=== PATIENT | male | born 1940 | race Caucasian/White ===

== ENCOUNTER → 2017-04-21 | Outpatient (CLI) | payer MEDICARE | END | disposition home or self-care (01) | LOC: PCVCCLINIC 10:00 | PROVIDERS: ATTEND Internal Medicine Cardiovascular Disease | DX: I45.10 Unspecified right bundle-branch block (principal); I44.4 Left anterior fascicular block; I35.0 Nonrheumatic aortic (valve) stenosis; I10 Essential (primary) hypertension; I71.4 Abdominal aortic aneurysm, without rupture; E78.00 Pure hypercholesterolemia, unspecified; J44.9 Chronic obstructive pulmonary disease, unspecified; M19.90 Unspecified osteoarthritis, unspecified site; E66.9 Obesity, unspecified; I83.11 Varicose veins of right lower extremity with inflammation; I83.12 Varicose veins of left lower extremity with inflammation; Z95.2 Presence of prosthetic heart valve; Z95.0 Presence of cardiac pacemaker; Z95.1 Presence of aortocoronary bypass graft; Z95.4 Presence of other heart-valve replacement; Z87.891 Personal history of nicotine dependence; Z79.82 Long term (current) use of aspirin | CPT/HCPCS: 80061; 93005; G0463 ==

== ENCOUNTER → 2017-05-21 | Outpatient (CLI) | payer MEDICARE ==
--- NOTE | 2017-05-21 11:08 | PCVCIMAG ---
EXAM: AORTOILIAC DUPLEX INDICATION: Abdominal aortic aneurysm with prior stent graft repair. FINDINGS: AORTA: Suprarenal aorta measures maximum diameter of 3.0 cm. Prior stent graft repair of abdominal aortic aneurysm appears intact without obvious endoleak. Residual aneurysm sac measures maximum diameter of 5.7 x 6.1 cm. No prior study currently available. RIGHT COMMON ILIAC ARTERY: Maximum diameter is 1.8 cm. No significant stenosis. RIGHT EXTERNAL ILIAC ARTERY: No significant stenosis. LEFT COMMON ILIAC ARTERY: Maximum diameter is 1.7 cm. No significant stenosis. LEFT EXTERNAL ILIAC ARTERY: No significant stenosis. IMPRESSION: Intact stent graft repair of abdominal aortic aneurysm by ultrasound criteria. Residual aneurysm sac measures maximum diameter of 6.1 cm. Interval follow-up with CT angiography of the abdomen and pelvis is suggested for a more detailed evaluation for endoleak. LOC:[id number]
--- NOTE | 2017-05-21 17:46 | PCVCIMAG ---
APPROVED REPORT Study performed: 05/21/2017 10:46:19 EXAM: Comprehensive 2D, Doppler, and color-flow Echocardiogram Patient Location: Echo lab Status: routine BSA: 2.49 HR: 53 bpmBP: 138/84 mmHg Rhythm: NSR Other Information Indications Aortic Valve Disease Mitral Valve Disease CAD S/P CABG,AORTIC VALVE REPLACEMENT #25 SIDDIQI BIOPROSTHETIC 2016, MITRAL VALVE REPLACEMENT 2006 , CABG 2005 2D Dimensions IVSd: 10.28 (7-11mm)LVOT Diam: 24.72 (18-24mm) LVDd: 47.98 mm PWd: 9.60 (7-11mm)Ascending Ao: 35.78 (22-36mm) LVDs: 24.28 (25-40mm) Left Atrium: 44.60 (27-40mm) Aortic Root: 30.76 mm LV Single Plane 4CH: 61.01 % LV Single Plane 2CH: 54.88 %William's LVEF: 57.94 % Biplane EF: 58.1 % Volumes Left Atrial Volume (Systole) Single Plane 4CH: 89.20 mLSingle Plane 2CH: 62.16 mL Biplane LA Volume: 75.00 mLLA ESV Index: 30.00 mL/m2 Aortic Valve AoV Peak Joel.: 2.53 m/s AO Peak Gr.: 25.24 mmHgLVOT Max P.14 mmHg AO Mean Gr.: 16.02 mmHgLVOT Mean P.84 mmHg AO V2 Mean: 1.92 m/sLVOT Max V: 1.08 m/s AO V2 VTI: 68.85 cmLVOT Mean V: 0.82 m/s LUCIA (VTI): 1.91 hp1UMLO V1 VTI: 27.36 cm LUCIA Vmax: 2.05 cm2 SV (LVOT): 131.23 mL Mitral Valve MV Peak Gr.: 5.62 mmHg MV Mean Gr.: 2.19 mmHgE/A Ratio: 1.0 MV Decel. Time: 290.73 ms MV E Max Joel.: 0.99 m/s MV A Joel.: 1.03 m/s MV Max Joel.: 1.19 m/s MV Mean Joel.: 0.69 m/s MV VTI: 506.22 mm MVA VTI: 259.24 mm2 MV PHT: 99.03 ms MVA (PHT): 2.22 cm2 IVRT: 89.97 ms TDI E/Lateral E': 7.62E/Medial E': 16.50 Medial E' Joel.: 0.06 m/s Lateral E' Joel.: 0.13 m/s Pulmonary Valve PV Peak Joel.: 0.97 m/sPV Peak Gr.: 3.77 mmHg Pulmonary Vein P Vein S: 0.52 m/sP Vein A: 0.35 m/s P Vein D: 0.48 m/sP Vein A Dur.: 121.1 msec P Vein S/D Ratio: 1.08 Tricuspid Valve TR Peak Joel.: 2.78 m/s TR Peak Gr.: 30.94 mmHg TV Vmax: 0.83 m/sPA Pressure: 38.00 mmHg Left Ventricle The left ventricle is normal size. There is normal LV segmental wall motion. Moderate to severe concentric left ventricular hypertrophy. Left ventricular systolic function is normal. The left ventricular ejection fraction is within the normal range. LVEF is 55-60%. The left ventricular diastolic function is normal. Right Ventricle The right ventricle is normal size. The right ventricular systolic function is normal. Atria The left atrium size is normal. The right atrium size is normal. Aortic Valve Normally functioning #25 Siddiqi Bioprosthetic aortic valve is present. Peak gradient is 25.6mmHg and the mean gradient is 16 mmHg. The peak velocity is2.5m/sec with a valve area of 2.o cm2. No aortic regurgitation is present. There is no aortic valvular stenosis. Mitral Valve Moderate mitral annular calcification. Mitral valve leaflets open well. Trace to mild mitral regurgitation. No evidence of mitral valve stenosis. Tricuspid Valve The tricuspid valve is normal in structure. Trace to mild tricuspid regurgitation with a PA pressure of 38mmHg. Pulmonic Valve The pulmonary valve is normal in structure. There is no pulmonic valvular regurgitation. Great Vessels The aortic root is normal in size. IVC is normal in size and collapses with >50% inspiration Pericardium There is no pericardial effusion. <Conclusion> Left ventricular systolic function is normal. The left ventricular ejection fraction is within the normal range. Moderate to severe concentric left ventricular hypertrophy. LVEF is 55-60%. The left ventricular diastolic function is normal. The right ventricle is normal size. The left atrium size is normal. No aortic regurgitation is present. Moderate mitral annular calcification. Mitral valve leaflets open well. Trace to mild tricuspid regurgitation with a PA pressure of 38mmHg. There is no pericardial effusion.
== END | disposition home or self-care (01) ==
LOC: PCVCIMAG 09:22
PROVIDERS: ATTEND Internal Medicine Cardiovascular Disease
DX: I08.1 Rheumatic disorders of both mitral and tricuspid valves (principal); I71.4 Abdominal aortic aneurysm, without rupture; I10 Essential (primary) hypertension; J44.9 Chronic obstructive pulmonary disease, unspecified; Z95.2 Presence of prosthetic heart valve; Z95.1 Presence of aortocoronary bypass graft; Z95.828 Presence of other vascular implants and grafts
CPT/HCPCS: 93306; 93978

== ENCOUNTER → 2018-02-17 | Outpatient (CLI) | payer MEDICARE | END | disposition home or self-care (01) | LOC: PCVCCLINIC 11:05 | DX: I71.4 Abdominal aortic aneurysm, without rupture (principal); E78.00 Pure hypercholesterolemia, unspecified; I10 Essential (primary) hypertension; I35.0 Nonrheumatic aortic (valve) stenosis; I87.329 Chronic venous hypertension (idiopathic) with inflammation of unspecified lower extremity; J44.9 Chronic obstructive pulmonary disease, unspecified; F17.201 Nicotine dependence, unspecified, in remission; Z79.82 Long term (current) use of aspirin | CPT/HCPCS: 80061; 93005; G0463 ==

== ENCOUNTER → 2018-05-02 | Outpatient (CLI) | payer MEDICARE ==
--- NOTE | 2018-05-02 16:03 | PCVCIMAG ---
EXAM: BILATERAL SUPERFICIAL VENOUS DUPLEX INDICATION: Leg pain and swelling. FINDINGS: Right leg: No thrombus in the common femoral, main femoral, or popliteal veins. These veins are compressible. Right Great Saphenous Vein: At the saphenofemoral junction the diameter is 8.8 mm, in the mid thigh it is 5.7 mm, and in the calf it is 3.4 mm. There is not significant venous insufficiency/reflux throughout. Venous insufficiency/reflux duration is 0.2 seconds. Right Small Saphenous Vein: At the saphenopopliteal junction the diameter is 4.4 mm, and in the calf it is 1.9 mm. There is not significant venous insufficiency/reflux throughout. Venous insufficiency/reflux duration is 0.3 seconds. There is not a cranial extension present. Left leg: No thrombus in the common femoral, main femoral, or popliteal veins. These veins are compressible. Left Great Saphenous Vein: At the saphenofemoral junction the diameter is 9.5 mm, in the mid thigh it is 6.4 mm, and in the calf it is 6.0 mm. There is significant venous insufficiency/reflux throughout. Venous insufficiency/reflux duration is 7.2 seconds. Left Small Saphenous Vein: At the saphenopopliteal junction the diameter is 5.5 mm, and in the calf it is 3.3 mm. There is not significant venous insufficiency/reflux throughout. Venous insufficiency/reflux duration is 0 seconds. There is not a cranial extension present. IMPRESSION: Right Great Saphenous Vein: No significant venous insufficiency/reflux is present as noted above. Right Small Saphenous Vein: No significant venous insufficiency/reflux is present as noted above. Left Great Saphenous Vein: Significant venous insufficiency/reflux is present as noted above. Left Small Saphenous Vein: No significant venous insufficiency/reflux is present as noted above. LOC:[id number]
== END | disposition home or self-care (01) ==
LOC: PCVCIMAG 15:53
PROVIDERS: ATTEND Internal Medicine Cardiovascular Disease
DX: I87.2 Venous insufficiency (chronic) (peripheral) (principal); I87.322 Chronic venous hypertension (idiopathic) with inflammation of left lower extremity; I10 Essential (primary) hypertension; I71.4 Abdominal aortic aneurysm, without rupture; J44.9 Chronic obstructive pulmonary disease, unspecified; E78.00 Pure hypercholesterolemia, unspecified; M19.90 Unspecified osteoarthritis, unspecified site; Z79.899 Other long term (current) drug therapy; Z79.82 Long term (current) use of aspirin; Z87.891 Personal history of nicotine dependence
CPT/HCPCS: 93970; G0463

== ENCOUNTER → 2018-06-27 | Outpatient (CLI) | payer MEDICARE ==
[~2018-06-27] MED LIST: ARNICA TOPICAL GEL 1.5OZ TUBE. TP ONE; CEPHALEXIN 250 MG CAPSULE. ONE; DIAZEPAM 10 MG TABLET. ONE; IV NORMAL SALINE 1000ML BAG 1,000 ML ONE; LIDOCAINE 1%/EPI 1:100,000 20 ML VIAL. ONE; SODIUM BICARBONATE 50 MEQ/50 ML VIAL. ONE
--- NOTE | 2018-06-27 09:54 | PCVCINTER ---
EXAM: LEFT GREAT SAPHENOUS VEIN ENDOVENOUS LASER ABLATION INDICATION: Chronic Venous Insufficiency Class 6. Leg pain and swelling. Failed conservative therapy including medical grade compression stockings for at least 3 months. Venous hypertension chronic. PROCEDURE: Procedure and risks of endovenous laser ablation including thrombosis, vascular injury, nerve injury, skin necrosis, and infection were discussed with the patient and consent obtained. The left leg was prepped and draped in the normal sterile fashion. Using ultrasound guidance access into the left great saphenous vein was obtained and a 5F 70 cm long catheter was advanced to 2 cm below the saphenofemoral junction. The laser fiber was advanced through the catheter to its tip and the catheter partially retracted. Abundant tumescent anesthesia using a dilute lidocaine solution was given in the perivenous tissues throughout the length of the laser fiber. Ultrasound confirmed good position of the distal tip of the laser fiber as well as direct transcutaneous visualization. The 1470 Dornier laser was set to 6 oropeza and a slow continuous pull-back technique employed to deliver [id number] Joules throughout the treated segment. Catheter and fiber were removed and hemostasis obtained. No immediate complications. The leg was dressed and wrapped appropriately and reinforced with a compression stocking. IMPRESSION: Satisfactory endovenous laser ablation of the left great saphenous vein. LOC:[id number]
== END | disposition home or self-care (01) ==
LOC: PCVCINTER 08:08
PROVIDERS: ATTEND Nuclear Medicine Nuclear Cardiology
DX: I83.812 Varicose veins of left lower extremity with pain (principal); I87.2 Venous insufficiency (chronic) (peripheral); I71.4 Abdominal aortic aneurysm, without rupture; E78.00 Pure hypercholesterolemia, unspecified; M19.90 Unspecified osteoarthritis, unspecified site; E55.9 Vitamin D deficiency, unspecified; M79.7 Fibromyalgia; Z95.0 Presence of cardiac pacemaker; Z98.42 Cataract extraction status, left eye; Z98.41 Cataract extraction status, right eye; Z96.1 Presence of intraocular lens; Z95.1 Presence of aortocoronary bypass graft; Z98.890 Other specified postprocedural states; Z82.0 Family history of epilepsy and other diseases of the nervous system; Z87.891 Personal history of nicotine dependence; Z72.89 Other problems related to lifestyle; Z95.4 Presence of other heart-valve replacement; E66.9 Obesity, unspecified; K21.9 Gastro-esophageal reflux disease without esophagitis; J44.9 Chronic obstructive pulmonary disease, unspecified; I35.0 Nonrheumatic aortic (valve) stenosis; Z79.899 Other long term (current) drug therapy
CPT/HCPCS: 36478; C1751; C1769; C1894; J3490; J7030

== ENCOUNTER → 2018-07-07 | Outpatient (CLI) | payer MEDICARE ==
[~2018-07-07] MED LIST changes: -ARNICA TOPICAL GEL 1.5OZ TUBE. TP ONE; -CEPHALEXIN 250 MG CAPSULE. ONE; +HEPARIN for ARTERIAL LINE 0 ML ONE; +IOHEXOL 300 MG/ML 100ML VIAL. ONE; -IV NORMAL SALINE 1000ML BAG 1,000 ML ONE; +IV NORMAL SALINE 500ML BAG 500 ML ONE; +LIDOCAINE 1% Multi-Dose 50 ML VIAL. ONE; -LIDOCAINE 1%/EPI 1:100,000 20 ML VIAL. ONE; +MIDAZOLAM HCL/PF 2 MG/2 ML VIAL. ONE; -SODIUM BICARBONATE 50 MEQ/50 ML VIAL. ONE; +fentaNYL PF VIAL 100 MCG/2 ML VIAL ONE
--- NOTE | 2018-07-07 10:05 | PCVCINTER ---
EXAM: 1. INTRAVASCULAR ULTRASOUND OF THE INFERIOR VENA CAVA 2. INTRAVASCULAR ULTRASOUND OF THE RIGHT COMMON AND EXTERNAL ILIAC AND COMMON FEMORAL VEINS 3. INTRAVASCULAR ULTRASOUND OF THE LEFT COMMON AND EXTERNAL ILIAC AND COMMON FEMORAL VEINS 4. 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 Leg pain and swelling. Failed conservative therapy including medical grade compression stockings for at least 3 months. Venous hypertension chronic. PROCEDURE: Procedure and risks of IVC and ileofemoral venography and intravascular ultrasound, and venous stent placement as appropriate including bleeding, infection, venous thrombosis, stent migration/thrombosis, contrast-induced nephropathy requiring dialysis, stroke, and were discussed with the patient and consent obtained. Patient was given IV antibiotics. The patient's right neck and chest was prepped and draped in the normal sterile fashion. IV conscious sedation was used throughout the procedure with appropriate monitoring. Ultrasound was used to interrogate the neck and showed the internal jugular vein to be patent. A spot ultrasound image of the internal jugular vein was saved. Under ultrasound guidance access into the right internal jugular vein was obtained and an 8F sheath was placed to the level of the lower IVC. Catheter was placed into the lower IVC and IVC cavogram performed. Catheter was placed to the level of the right common femoral vein and right iliofemoral venogram obtained. Catheter was placed to the level of the left common femoral vein and left iliofemoral venogram was obtained. The 8 Vincentian intravascular ultrasound catheter was then placed to the level of the right common femoral vein and intravascular ultrasound evaluation of the right common femoral, right external iliac, and right common iliac veins was accomplished in a pull-back fashion. The 8 Vincentian intravascular ultrasound catheter was then placed to the level of the left common femoral vein and intravascular ultrasound evaluation of the left common femoral, left external iliac, and left common iliac veins was accomplished in a pull-back fashion. Intravascular ultrasound evaluation of the inferior vena cava was then accomplished in a pullback fashion. Sheath was removed and hemostasis obtained using manual pressure. FINDINGS: IVC INTRAVASCULAR ULTRASOUND: Normal vessel: 17.0 x 26.0 mm. Area = 325.6 sq. mm. RIGHT COMMON ILIAC VEIN INTRAVASCULAR ULTRASOUND: Normal vessel: 12.6 x 17.0 mm. Area = 171.6 sq. mm. RIGHT EXTERNAL ILIAC VEIN INTRAVASCULAR ULTRASOUND: Normal vessel: 12.6 x 15.0 mm. Area = 145.8 sq. mm. RIGHT COMMON FEMORAL VEIN INTRAVASCULAR ULTRASOUND: Normal vessel: 15.4 x 19.7 mm. Area = 238.3 sq. mm. LEFT COMMON ILIAC VEIN INTRAVASCULAR ULTRASOUND: Normal vessel: 16.5 x 18.6 mm. Area = 238.6 sq. mm. LEFT EXTERNAL ILIAC VEIN INTRAVASCULAR ULTRASOUND: Normal vessel: 12.0 x 15.8 mm. Area = 156.2 sq. mm. LEFT COMMON FEMORAL VEIN INTRAVASCULAR ULTRASOUND: Normal vessel: 15.1 x 17.1 mm. Area = 219.3 sq. mm. VENOGRAPHY: INFERIOR VENA CAVA: Vessel is patent without significant stenosis, scarring, or extrinsic compression. RIGHT COMMON ILIAC VEIN: Vessel is patent without significant stenosis, scarring, or extrinsic compression. RIGHT EXTERNAL ILIAC VEIN: Vessel is patent without significant stenosis, scarring, or extrinsic compression. RIGHT COMMON FEMORAL VEIN: Vessel is patent without significant stenosis, scarring, or extrinsic compression. LEFT COMMON ILIAC VEIN: Vessel is patent without significant stenosis, scarring, or extrinsic compression. LEFT EXTERNAL ILIAC VEIN: Vessel is patent without significant stenosis, scarring, or extrinsic compression. LEFT COMMON FEMORAL VEIN: Vessel is patent without significant stenosis, scarring, or extrinsic compression. IMPRESSION: Intravascular ultrasound and venographic evaluation of the inferior vena cava and the common and external iliac and common femoral veins bilaterally is within normal limits. No evidence of significant venous obstruction is identified. LOC:[id number]
== END | disposition home or self-care (01) ==
LOC: PCVCINTER 08:06
PROVIDERS: ATTEND Internal Medicine Cardiovascular Disease
DX: I87.2 Venous insufficiency (chronic) (peripheral) (principal); I87.329 Chronic venous hypertension (idiopathic) with inflammation of unspecified lower extremity; I10 Essential (primary) hypertension; J44.9 Chronic obstructive pulmonary disease, unspecified; I71.4 Abdominal aortic aneurysm, without rupture; E78.00 Pure hypercholesterolemia, unspecified; M19.90 Unspecified osteoarthritis, unspecified site; E55.9 Vitamin D deficiency, unspecified; M79.7 Fibromyalgia; Z95.0 Presence of cardiac pacemaker; Z95.1 Presence of aortocoronary bypass graft; Z98.890 Other specified postprocedural states; Z82.0 Family history of epilepsy and other diseases of the nervous system; Z87.891 Personal history of nicotine dependence; Z72.89 Other problems related to lifestyle; Z79.899 Other long term (current) drug therapy; Z79.82 Long term (current) use of aspirin; I35.0 Nonrheumatic aortic (valve) stenosis; E66.9 Obesity, unspecified; Z95.3 Presence of xenogenic heart valve; Z98.49 Cataract extraction status, unspecified eye; Z96.1 Presence of intraocular lens
CPT/HCPCS: 36012; 37252; 37253; 75822; 75825; 76937; 99152; 99153; C1751; C1753; C1769; C1894; J1644; J2250; J3010; J7040; Q9967

== ENCOUNTER → 2018-12-09 | Outpatient (CLI) | payer MEDICARE ==
--- NOTE | 2018-12-09 20:15 | PCVCIMAG ---
EXAM: AORTOILIAC DUPLEX INDICATION: Abdominal aortic aneurysm status post graft repair. FINDINGS: AORTA: Suprarenal aorta measures maximum diameter of 2.9 cm. Prior stent graft repair of abdominal aortic aneurysm appears intact without obvious endoleak. Residual aneurysm sac measures maximum diameter of 5.7 x 6.1 cm compared to 5.7 x 6.1 cm on prior study May 2017. No significant aortic stenosis. RIGHT COMMON ILIAC ARTERY: Maximum diameter is 2.1 cm. No significant stenosis. RIGHT EXTERNAL ILIAC ARTERY: No significant stenosis. LEFT COMMON ILIAC ARTERY: Maximum diameter is 2.1 cm. No significant stenosis. LEFT EXTERNAL ILIAC ARTERY: No significant stenosis. IMPRESSION: Intact stent graft repair of abdominal aortic aneurysm by ultrasound criteria. Residual aneurysm sac has remains stable in size since prior study. LOC:[id number]
== END | disposition home or self-care (01) ==
LOC: PCVCIMAG 09:38
PROVIDERS: ATTEND Internal Medicine Cardiovascular Disease
DX: I71.4 Abdominal aortic aneurysm, without rupture (principal); I87.2 Venous insufficiency (chronic) (peripheral); I10 Essential (primary) hypertension; I35.0 Nonrheumatic aortic (valve) stenosis; E78.00 Pure hypercholesterolemia, unspecified; I65.23 Occlusion and stenosis of bilateral carotid arteries; Z95.3 Presence of xenogenic heart valve; Z87.891 Personal history of nicotine dependence; Z79.82 Long term (current) use of aspirin
CPT/HCPCS: 93005; 93978; G0463

== ENCOUNTER → 2019-08-10 | Outpatient (CLI) | payer MEDICARE ==
--- NOTE | 2019-08-10 10:41 | PCVCIMAG ---
APPROVED REPORT Study performed: 08/10/2019 09:40:06 EXAM: Comprehensive 2D, Doppler, and color-flow Echocardiogram Patient Location: Echo lab Room #: 2Status: routine BSA: 2.42 HR: 72 bpmBP: 134/82 mmHg Rhythm: NSR Other Information Study Quality: Adequate Indications Aortic Valve Disease Mitral Valve Disease CAD S/P CABG, S/P AVR #25 Fitzgerald bioprosthetic valve 2D Dimensions IVSd: 11.02 (7-11mm)LVOT Diam: 24.65 (18-24mm) LVDd: 48.07 mm PWd: 11.13 (7-11mm)Ascending Ao: 38.10 (22-36mm) LVDs: 36.96 (25-40mm) Left Atrium: 35.67 (27-40mm) Aortic Root: 28.36 mm LV Single Plane 4CH: 54.61 % LV Single Plane 2CH: 53.96 % Biplane EF: 54.0 % Volumes Left Atrial Volume (Systole) Single Plane 4CH: 63.79 mLSingle Plane 2CH: 48.00 mL Biplane LA Volume: 60.00 mLLA ESV Index: 25.00 mL/m2 Aortic Valve AoV Peak Joel.: 2.70 m/s AO Peak Gr.: 29.35 mmHgLVOT Max P.56 mmHg AO Mean Gr.: 18.61 mmHg AO V2 Mean: 2.09 m/sLVOT Max V: 1.07 m/s AO V2 VTI: 57.17 cm LUCIA Vmax: 1.89 cm2 Mitral Valve MV Peak Gr.: 8.07 mmHg MV Mean Gr.: 3.35 mmHgE/A Ratio: 0.7 MV Decel. Time: 213.99 ms MV E Max Joel.: 0.88 m/s MV A Joel.: 1.28 m/s MV Max Joel.: 1.42 m/s MV Mean Joel.: 0.87 m/s MV VTI: 416.22 mm MV PHT: 101.57 ms MVA (PHT): 2.17 cm2 IVRT: 131.49 ms TDI E/Lateral E': 9.78E/Medial E': 17.60 Medial E' Joel.: 0.05 m/s Lateral E' Joel.: 0.09 m/s Pulmonary Valve PV Peak Joel.: 1.18 m/sPV Peak Gr.: 5.57 mmHg Pulmonary Vein P Vein S: 0.44 m/sP Vein A: 0.33 m/s P Vein D: 0.31 m/sP Vein A Dur.: 86.5 msec P Vein S/D Ratio: 1.42 Tricuspid Valve TR Peak Joel.: 2.37 m/s TR Peak Gr.: 22.52 mmHg TV Vmax: 0.69 m/sPA Pressure: 33.00 mmHg Left Ventricle The left ventricle is normal size. There is normal LV segmental wall motion. Mild concentric left ventricular hypertrophy. Left ventricular systolic function is normal. The left ventricular ejection fraction is within the normal range. LVEF is 50-55%. Grade I - abnormal relaxation pattern. Findings suggest the left atrial pressure is elevated. Right Ventricle The right ventricle is normal size. The right ventricular systolic function is normal. Atria The left atrium size is normal. The right atrium size is normal. Aortic Valve Normally functioning #25 Fitzgerald bioprosthetic valve is seen. A Bioprosthetic aortic valve is present. No aortic regurgitation is present. There is no aortic valvular stenosis. Mitral Valve Moderate mitral annular calcification. The mitral valveleaflets have normal leaflet excursion. There is no mitral valve regurgitation noted. No evidence of mitral valve stenosis. Tricuspid Valve The tricuspid valve is normal in structure. There is no tricuspid valve regurgitation noted. Pulmonic Valve The pulmonary valve is normal in structure. There is no pulmonic valvular regurgitation. Great Vessels The aortic root is normal in size. The ascending aorta is normal in size. Aortic arch is not well visualized. IVC is normal in size and collapses <50% with inspiration. Pericardium There is no pericardial effusion. There is no pleural effusion. <Conclusion> The left ventricle is normal size. Mild concentric left ventricular hypertrophy. LVEF is 50-55%. Grade I - abnormal relaxation pattern. Findings suggest the left atrial pressure is elevated. The right ventricle is normal size. The left atrium size is normal. Normally functioning #25 Fitzgerald bioprosthetic valve is seen. There is no aortic valvular stenosis. Moderate mitral annular calcification. The mitral valveleaflets have normal leaflet excursion. There is no mitral valve regurgitation noted. The tricuspid valve is normal in structure. The aortic root is normal in size. There is no pericardial effusion.
== END | disposition home or self-care (01) ==
LOC: PCVCIMAG 09:25
PROVIDERS: ATTEND Internal Medicine Cardiovascular Disease
DX: I35.0 Nonrheumatic aortic (valve) stenosis (principal); J44.9 Chronic obstructive pulmonary disease, unspecified; E78.00 Pure hypercholesterolemia, unspecified; F17.200 Nicotine dependence, unspecified, uncomplicated; I11.9 Hypertensive heart disease without heart failure; I87.2 Venous insufficiency (chronic) (peripheral); M19.90 Unspecified osteoarthritis, unspecified site; Z95.1 Presence of aortocoronary bypass graft; Z95.3 Presence of xenogenic heart valve; Z79.82 Long term (current) use of aspirin; Z79.899 Other long term (current) drug therapy
CPT/HCPCS: 36415; 80061; 93005; 93306; G0463